=== PATIENT | male | born 1975 | race Hispanic/Latino ===

== ENCOUNTER → 2019-11-26 | Day surgery (SDC) | payer OTHER ==
[~2019-11-26] MED LIST: ACETAMINOPHEN 1000 MG/100 ML IV ONE; ACETAMINOPHEN/CODEINE 300MG - 30MG TAB ONE; CEFAZOLIN SOD 1 GM VIAL ONE; CEFAZOLIN SOD 1 GM/NS 50ML 50 ML IV ONE; DEXILANT30 MG PO; FENTANYL CITRATE/PF 100MCG/2 ML INJ ONE; GUANFACINE HCL2 MG PO; KETOROLAC TROMETHAMINE 30 MG/ML VIAL ONE; LIDOCAINE HCL 2% LOCAL INJ 5 ML SDV VIAL INJ ONE; MIDAZOLAM HCL 2 MG/2 ML VIAL ONE; ONDANSETRON HCL INJ 2MG/ML 2ML 2 MG/ML VIAL ONE; PROPOFOL IV EMULSION 10 MG/ML 20 ML VIAL ONE; SEVOFLURANE INHAL SOLN 250 ML PEN BTL ONE
[2019-11-26 09:40] VITALS: BP 137/91
--- NOTE | 2019-11-26 12:45 | Operative Report ---
DATE OF PROCEDURE: 11/26/2019 SURGEON: Harjinder Sosa MD PACKAGING MACHINE OPERATOR: Fabian Mcclain, certified PA. PREOPERATIVE DIAGNOSIS: Left knee recurrent medial and lateral meniscal tear. POSTOPERATIVE DIAGNOSIS: Left knee recurrent medial and lateral meniscal tear. PROCEDURE: Left knee revision arthroscopy with partial medial and partial lateral meniscectomy. INDICATIONS: The patient is a large 44-year-old gentleman, who has clinic signs and symptoms consistent with a medial and lateral meniscal tear in his left knee. He is status post arthroscopy many years ago. He is 6 feet 7 inches and weighs 370 pounds. He is starting to develop some early signs of arthritis. The findings and options have been discussed. The patient states he would like to proceed with arthroscopy. Realistic expectations have been stressed. The likelihood of future surgical intervention for knee replacement has been explained. He states he understands and wishes to proceed. PROCEDURE IN DETAIL: The patient was brought to the operating room and placed under general anesthetic. His left lower extremity was prepped and draped in a sterile manner. A preoperative time-out was performed. The extremity had been exsanguinated and a proximal tourniquet was inflated to 350 mmHg. Standard arthroscopy portals were established. The knee was insufflated with sterile saline and systematically inspected. The patellofemoral groove was well preserved. 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 The scope was placed into the medial compartment. There was a completely displaced and plastically deformed bucket-handle tear of the medial meniscus. Attempts were made to reduce this. The deformity of the meniscus was difficult to reduce. I could get behind the meniscus and see that the remnant of the peripheral margin was severely frayed. Considering his other arthritic changes, I did not feel that he would benefit from a repair. A partial medial meniscectomy was performed using a combination of biting forceps, meniscal scissors, and a 4 mm shaver. Both the anterior and posterior portions of the torn meniscus were debrided back to a stable margin. The peripheral remnant of the meniscus was also debrided back to a stable margin. Photographs were taken throughout the surgery. The cruciate ligaments were probed and inspected. These were unremarkable. The lateral compartment was inspected. He was status post a previous lateral meniscectomy. There were some areas of grade 3 to almost grade 4 wear of the lateral tibial plateau. The unstable fragments of cartilage around the areas of chondromalacia were debrided back to a stable margin. A small radial component of the recurrent tear was debrided back to a stable margin. Once again, photographs were taken. The knee was thoroughly irrigated. The gutters were inspected for any persistent meniscal remnants. The arthroscopic instruments were removed. The portal incisions were closed with nylon stitches. A sterile bandage was applied. The patient was extubated and transported to the recovery room in stable condition. There was no blood loss and all needle and sponge counts were correct. Harjinder Sosa MD DR/CHRISTI /[id number]
== END | disposition home or self-care (01) ==
LOC: OR 05:36
PROVIDERS: ATTEND Specialist
DX: S83.212A Bucket-handle tear of medial meniscus, current injury, left knee, initial encounter (principal); S83.232A Complex tear of medial meniscus, current injury, left knee, initial encounter; M94.262 Chondromalacia, left knee; S83.272A Complex tear of lateral meniscus, current injury, left knee, initial encounter; K21.9 Gastro-esophageal reflux disease without esophagitis; E66.01 Morbid (severe) obesity due to excess calories; F90.9 Attention-deficit hyperactivity disorder, unspecified type; X58.XXXA Exposure to other specified factors, initial encounter; Y92.003 Bedroom of unspecified non-institutional (private) residence as the place of occurrence of the external cause; Z01.810 Encounter for preprocedural cardiovascular examination; Z68.41 Body mass index [BMI] 40.0-44.9, adult
CPT/HCPCS: 29880; 93005; J0131; J0690 ×2; J1885; J2001; J2250; J2405; J2704; J3010

== ENCOUNTER 2020-04-10 09:57 | Emergency (ER) | payer OTHER ==
[~2020-04-10] VITALS: Ht 200.7 cm; Wt 163.3 kg
[~2020-04-10 09:57] MED LIST changes: -ACETAMINOPHEN 1000 MG/100 ML IV ONE; -ACETAMINOPHEN/CODEINE 300MG - 30MG TAB ONE; -CEFAZOLIN SOD 1 GM VIAL ONE; -CEFAZOLIN SOD 1 GM/NS 50ML 50 ML IV ONE; -FENTANYL CITRATE/PF 100MCG/2 ML INJ ONE; -KETOROLAC TROMETHAMINE 30 MG/ML VIAL ONE; -LIDOCAINE HCL 2% LOCAL INJ 5 ML SDV VIAL INJ ONE; -MIDAZOLAM HCL 2 MG/2 ML VIAL ONE; -ONDANSETRON HCL INJ 2MG/ML 2ML 2 MG/ML VIAL ONE; -PROPOFOL IV EMULSION 10 MG/ML 20 ML VIAL ONE; -SEVOFLURANE INHAL SOLN 250 ML PEN BTL ONE
--- NOTE | 2020-04-10 10:38 | Emergency Department Note ---
History of Present Illnes History of Present Illness Chief Complaint: COVID PUI History of Present Illness This is a 44 year old male arrived to the ED after getting his positive covid result. Patient complaining of malaise and generalized body aches. Patient states he is a 7-year-old at home and is concerned about being around him and would like to be admitted to the hospital. Historian: Patient Arrival Mode: Car Onset (how long ago): day(s) Severity: mild Duration (how long): day(s) Timing of current episode: intermittent Progression: unchanged Chronicity: new Relieving factors: none Exacerbating factors: none Past Medical/Family History Physician Review I have reviewed the patient's past medical and family history. Any updates have been documented here. Past Medical History Recent Fever: Yes Clinical Suspicion of Infectio: Yes New/Unexplained Change in Ment: No Other Medical History: minimal change disease Past Surgical History: Back Surgery Other Surgery: knee scoped Social History Physically hurt or threatened: No Other Last Tetanus: UTD Review of Systems Review of Systems Constitutional: Reports as per HPI, Reports malaise, Reports weakness EENTM: Reports no symptoms Cardiovascular: Reports no symptoms Respiratory: Reports as per HPI, Reports cough Gastrointestinal: Reports no symptoms Genitourinary: Reports no symptoms Musculoskeletal: Reports no symptoms Integumentary: Reports no symptoms Neurological: Reports no symptoms Psychological: Reports no symptoms Endocrine: Reports no symptoms Hematological/Lymphatic: Reports no symptoms Physical Exam Related Data Allergies: Coded Allergies: No Known Allergies (Unverified , 05/02/12) Triage Vital Signs Vital Signs Date Time Temp Pulse Resp B/P (MAP) Pulse Ox O2 Delivery O2 Flow Rate FiO2 04/10/20 10:01 98.5 94 22 155/91 95 Room Air Vital signs reviewed: Yes Physical Exam CONSTITUTIONAL Constitutional: Present well-developed, Present well-nourished HENT HENT: Present normocephalic, Present atraumatic, Present oropharynx clear/m oist, Present nose normal HENT L/R: Present left ext ear normal, Present right ext ear normal EYES Eyes: Reports PERRL, Reports conjunctivae normal NECK Neck: Present ROM normal PULMONARY Pulmonary: Present effort normal, Present breath sounds normal CARDIOVASCULAR Cardiovascular: Present regular rhythm, Present heart sounds normal, Present capillary refill normal, Present normal rate GASTROINTESTINAL Abdominal: Present soft, Present nontender, Present bowel sounds normal GENITOURINARY Genitourinary: Present exam deferred SKIN Skin: Present warm, Present dry MUSCULOSKELETAL Musculoskeletal: Present ROM normal NEUROLOGICAL Neurological: Present alert, Present oriented x 3, Present no gross motor or sensory deficits PSYCHOLOGICAL Psychological: Present mood/affect normal, Present judgement normal Assessment & Plan Medical Decision Making MDM 44-year-old well-appearing male arrives to the ED with complaints of cough fever loss of taste and smell. Patient is clinically presenting with signs and symptoms consistent with Covid 19. Patient informed he is positive until proven otherwise. Patient's oxygen saturation remained 99% even on exertion, no evidence of tachypnea or dyspnea noted in the ED. Spoke present length about the importance of sleeping on his stomach and rotating from side to side. Z-Geronimo and Decadron given, signs and symptoms for return discussed. In the light of the Covid pandemic, disaster medicine care was given- patient understands why he is not being admitted to the hospital, no indications for a chest x-ray at this time given normal oxygen saturation and respiratory status. A she does not require any supplemental oxygen, speaking in full sentences wrapping short of breath. Patient clinically appears well, outpatient pulmonary follow-up given. The red flags for return to emergency department given. Patient understands the emergency department is open at all times to serve her needs as well as the needs of the community. Patient's primary care physician was also informed. Pt has a strong support system as an outpatient and discharge home with made with joint clinical decision making. Pt understands he is at high risk of morbidity and mortality given his age and co-morbidities. Pt understands he is welcome to return to the ED at anytime for worsening symptoms. Assessment & Plan Final Impression: (1) COVID-19 Depart Disposition: HOME, SELF-CARE Last Vital Signs Date Time Temp Pulse Resp B/P (MAP) Pulse Ox O2 Delivery O2 Flow Rate FiO2 04/10/20 10:01 98.5 94 22 155/91 95 Room Air Home Meds Reported Medications Dexlansoprazole (DEXILANT) 30 Mg Hang., 30 MG PO PRN THERAPEUTIC INTERCHANGED WITH PROTONIX PER [facility] 11/22/19 Guanfacine Hcl (GUANFACINE HCL) 2 Mg Tablet, 5 MG PO DAILY 11/22/19 HOLLIE NGUYEN DO Apr 10, 2020 10:38
== END 2020-04-10 11:13 | disposition home or self-care (01) ==
LOC: ER 11:12
DX: U07.1 COVID-19 (principal); R53.81 Other malaise
CPT/HCPCS: 99282